=== PATIENT | male | born 1970 | race Caucasian/White ===

== ENCOUNTER 2019-10-29 06:33 | Inpatient (IN) | payer OTHER, SELFPAY ==
[2019-10-29] VITALS (28 sets, daily range): BP systolic 109–152; BP diastolic 18–128; PULSE 77–94; RESP 6–20; TEMP 36–37.8; O2SAT 87–99
[2019-10-29] MEDS: Lactated Ringers 1,000 ML 80 ML IV ×3 (07:05→15:44)
[2019-10-29] MEDS: Celecoxib 200 MG CAP 400 MG PO (07:09)
[2019-10-29] MEDS: Gabapentin 300 MG CAP PO (07:09)
--- NOTE | 2019-10-29 07:24 | W.PREOPHP ---
Date of service: 10/29/19 Time of Service: 07:25 Assessment and Plan Assessment and plan (1) Varus deformity, not elsewhere classified, right knee: Status: Acute (2) Arthritis of right knee: Status: Acute Assessment and plan: Jag is a 49-year-old with severe arthritis of the right knee with notable varus deformity. He has failed conservative options and continues to have pain on a daily basis. I have offered a knee replacement. I previously discussed this in the office. But once again reviewed the risk of the procedure. These are not limited to bleeding, infection, pain, stiffness, hardware loosening, hardware failure, damage nerves and vessels, need for repeat procedures, blood clot, fracture. Despite these risks, he elects to proceed. A complete history and physical was performed by Lynne Keating at the facility and is noted in the chart along with preoperative labs. All this information was reviewed this morning. History of Present Illness History of Present Illness Chief Complaint: Right Knee DJD Narrative: Jag is a 49-year-old incarcerated male who has known severe arthritis of the right knee with notable deformity. This is plagued his ability to be independent with ambulation because chronic pain requiring narcotic medications in the form methadone. He is treated this conservatively for many years but continues to have worsening symptoms. I previously saw him in the office where the knee was evaluated with significant varus deformity, stable, and with severe [id number] arthritis. I had a long talk with him about treatment options along with the staff at the correctional facility in [place]. Today, he continues to complain of pain of the right knee. He is anxious to proceed with the right knee surgery but is nervous about pain control afterwards. He denies any current cough, fever, chills. He has had a Covid test and has been quarantined since then with a negative result. He had labs and history physical performed in [place] which all did not identify any significant reasons to not proceed with surgery today. Review of Systems All systems reviewed & are unremarkable except as noted in HPI and below [facility] Medical History Antisocial personality disorder (Acute) Chronic pain (Chronic) GERD (gastroesophageal reflux disease) (Chronic) Hx of opioid abuse (Acute) Hypertension (Chronic) IBS (irritable bowel syndrome) (Chronic) Surgical History History of arthroscopy of left shoulder (Acute) Hx of elbow surgery (Acute) R elbow Hx of spinal fusion (Acute) Social History Smoking/Tobacco Use Status: Former Tobacco Use Drug use: Never Current gender identity: male Meds Home Medications and Allergies Home Medications Medication Instructions Recorded Confirmed Type acetaminophen 325 mg capsule 325 mg PO BID 03/31/19 10/29/19 History docusate sodium 100 mg capsule 100 mg PO BID 03/31/19 10/29/19 History doxepin 100 mg capsule 100 mg PO DAILY 03/31/19 10/29/19 History hydrochlorothiazide 25 mg tablet 25 mg PO DAILY 03/31/19 10/29/19 History indomethacin 50 mg capsule 50 mg PO BID 03/31/19 10/29/19 History ketorolac 60 mg/2 mL intramuscular 60 mg IM ONCE 03/31/19 10/29/19 History cartridge lisinopril 30 mg tablet 30 mg PO DAILY 03/31/19 10/29/19 History pantoprazole 20 mg tablet,delayed 40 mg PO DAILY 03/31/19 10/29/19 History release sennosides 8.6 mg capsule 8.6 mg PO BID PRN 03/31/19 10/29/19 History buprenorphine HCl 8 mg sublingual 16 mg SL DAILY tab 04/28/19 10/29/19 History tablet bupropion HCl 75 mg tablet 150 mg PO BID tab 04/28/19 10/29/19 History dicyclomine 20 mg tablet 60 mg PO BID PRN tab 04/28/19 10/29/19 History propranolol 40 mg tablet 40 mg PO BID 04/28/19 10/29/19 History selenium sulfide 2.5 % lotion 2.5 % TP DAILY 04/28/19 10/29/19 History calcium carbonate [Tums] 1,000 mg PO BID PRN 10/27/19 10/29/19 History dextroamphetamine-amphetamine 30 mg PO DAILY 10/27/19 10/29/19 History [Adderall XR] diclofenac sodium [Voltaren 4 g TOPICAL BID PRN 10/27/19 10/29/19 History Arthritis Pain] magnesium hydroxide [Milk of 15 ml PO TID PRN 10/27/19 10/29/19 History Magnesia] methadone 110 mg PO DAILY 10/27/19 10/29/19 History pregabalin 100 mg PO TID 10/27/19 10/29/19 History duloxetine 30 mg PO BID 10/28/19 10/29/19 History min oil-lydia ilya-pet,w-cetyl al 1 applic TOPICAL BID PRN 10/28/19 10/29/19 History [DermaDaily] psyllium husk [Metamucil] 1 tbsp PO DAILY PRN 10/28/19 10/29/19 History triamcinolone acetonide 1 applic TOPICAL DAILY 10/28/19 10/29/19 History Allergies Allergy/AdvReac Type Severity Reaction Status Date / Time No Known Allergies Allergy Verified 10/29/19 06:57 Exam Narrative Exam Narrative: Sitting up in the hospital stretcher. Right knee shows significant varus deformity. No overlying skin changes or signs of skin defects or infection. Sensation intact light touch over the deep and superficial peroneal nerve and tibial nerve. Active ankle dorsiflexion, plantarflexion, great toe extension and great toe flexion. Results Last Vital Signs Temp 36.0 C L 10/29/19 06:37 Pulse 80 10/29/19 06:37 Resp 19 10/29/19 06:37 BP 125/74 10/29/19 06:37 Pulse Ox 94 L 10/29/19 06:37
[2019-10-29] MEDS: Bupivacaine 0.25% Pres-Free 30 ML VIAL ×2 (07:36→08:51)
[2019-10-29] MEDS: ceFAZolin 2 GM/50 ML BAG IVPB (07:41)
--- NOTE | 2019-10-29 07:46 | NUR.NOTE ---
Addendum entered by Mansi Haynes 10/29/19 08:13: Circulating RN aware also Original Note: Nursing Note: Birthdate discrepancy noted on Covid results obtained for pt. Covid results had pt's date of 07/23/1969. Paperwork for today's procedure has pt's date of 1970. Patient confirms with nurse, date of is 1970. Order Selector of [facility] and Orthopedics office aware of discrepancy prior to procedure.
[2019-10-29] MEDS: Ketorolac 30 MG/ML VIAL (08:53)
[2019-10-29] MEDS: Normal Saline 20 ML VIAL (08:54)
[2019-10-29] MEDS: fentaNYL 100 MCG/2 ML VIAL IVP ×2 (11:40→11:50)
--- NOTE | 2019-10-29 12:31 | ROE_ITS ---
Date of service: 10/29/19 Time of Service: 10:53 Operative Note Operative Note DATE OF PROCEDURE: 10/29/19 PRE-OP DIAGNOSIS: Right knee arthritis with severe varus deformity POST-OP DIAGNOSIS: same PROCEDURE: Right total Knee Arthroplasty with Intraoperative Navigation SURGEON: Fermin Cooper SAFETY AND OCCUPATIONAL HEALTH MANAGER: Gregroy Yates ANESTHESIA: GETA and regional ESTIMATED BLOOD LOSS: 600 PATHOLOGY: none sent TOURNIQUET TIME: 38 COMPLICATIONS: Other (The case was complicated at the time of induction. Patient fairly limited bronchospasm prior to placement after not tolerating LMA. During this time did have a desaturation requiring manual ventilation. Through this process the peripheral IV was also noted to be infiltrated making access challeng) Patient was transported to: PACU Patient's condition: stable Implants: 1. Depuy Attune Posterior Stabilized Femoral Component, Size 6 2. Depuy Attune Fixed Platform Tibial Component, Size 5 3. Depuy Attune 6x12 Fixed, Stabilized Poly 4. Depuy Attune Patellar Component, Size 38 Indications: I have seen Ozzy in clinic for symptoms of knee arthritis with severe deformity, confirmed with radiographic findings. He has exhausted nonoperative methods and was having significant limitations in daily function and desired better function and less pain. I discussed the technical details of a knee replacement. I explained the risks of the procedure to include, but not limited to, bleeding, infection, pain, stiffness, fracture, damage to nerves and vessels, damage to muscles and tendons, loosening, need for repeat procedure, blood clot and cardiopulmonary demise. Despite these risks, Jag elected to proceed. Findings: There was significant signs of arthritis throughout the knee along with severe varus deformity of the proximal tibia and large osteophytes circumferentially around the knee. Procedure Description: Jag was greeted in the preoperative holding area where the correct side was identified and marked. The consent was reviewed with the patient and signed. The history and physical was updated. All questions were answered. Preoperative mediacations were administered: Acetaminophen 1000mg, Celebrex 400mg, Gabapentin 300mg. An adductor canal block was then administered by the anesthesia team in the OR. The patient was placed into the supine position on the operating room table. A general anesthetic was then administered. However, during the beginning of induction there was notable poor oxygenation. Mask ventilation was required and it was determined that access was lost. There appeared to be a bronchospasm which was then followed by some hypotension and bradycardia. This did respond to some atropine. Access was finally established and Jag was monitored for the next 15 to 20 minutes. All vital signs correct themselves. There were no way for changes on his chest leads. He was noted to be stable and without signs of cardiovascular demise. Therefore, after discussing the case among all the providers in the room, we decided to proceed. A nonsterile tourniquet was placed high onto the leg but only used for cementing. Posts were placed for positioning during the procedure. All bony prominences were well padded. Prophylactic antibiotics in the form of cefazolin were administered. 1g of Tranxemic Acid was given intravenously within 30 minutes of incision. The right leg was then prepped with Chloraprep and draped in a standard fashion with impervious stockinette and extremity drape with Iodine impregnated skin protection. A timeout to confirm correct identity, side and site, procedure, allergies, anesthesia, and medical concerns was performed. With the knee in some flexion, a midline incision was made overlying the knee. Full thickness skin flaps were raised once the extensor mechanism was encountered. These were raised medially and laterally. Any bleeding was controlled with electrocautery. Once the extensor mechanism was fully exposed, a medial parapatellar arthrotomy was performed in a flexed position. All bleeding from the arthrotomy and the geniculate arteries was coagulated. A medial subperiosteal peel was performed with electrocautery to the midcoronal plane. Due to the significant varus deformity the entire medial tibial plateau was exposed. The fat pad was removed while keeping the patellar tendon protected. The anterior distal femur synovium was removed for later visualization. The ACL and PCL were resected and the anterior horn of the lateral meniscus was transected. The knee was then flexed with the patella everted. Large osteophytes from the tibia were removed. Large osteophytes from the femur were removed. There were notable osteophytes around the tibia with significant deformity of the medial tibia. A single starting pin was then placed 1cm anterior to the PCL insertion and the notch in the direction of the femoral head. The OrthoAlign device was applied over the pin. It was oriented to be in line with the epicondylar axis and the trochlear groove. It was then pinned into place. The navigation computer was then turned on and calibrated. The distal femur cut was set at 0 degrees varus/valgus and 2.5 degrees flexion. The distal femur cutting guide then was positioned for a 9mm cut. The distal femur was cut with an oscillating saw while protecting the soft tissues. The tibia was then addressed. The OrthoAlign device was placed over the tibial tubercle and medial tibia and secured into position. Once again, OrthoAlign was calibrated and then set for a 0 degree varus/valgus cut and 5 degrees of posterior slope. With this locked into position, the cut thickness stylus was used to assess cut thickness. The medial side, most involved side, was set for a 1mm cut through the trough of the posterior, medial tibia. This was then held in position and pinned into place with 2 additional pins and a cross pin for stability. The medial and lateral collateral ligaments were protected and the cut was performed. With this completed, it was assessed and noted to be of appropriate dimensions. The guide and OrthoAlign was removed. A spacer block was inserted and the knee was brought into extension. The 10 mm spacer block provided full extension, without hyperextension and with stability of both the medial and lateral collateral ligaments was assessed. There was some asymmetry with the gap with some laxity of the lateral side and therefore additional medial release was taken around the proximal, medial tibia to the posterior medial tibia. This improved the gap and was noted to be stable with a 12 mm spacer. The pins from the femur and the tibia were then removed. The distal femur was then sized. The anterior stylus was placed onto the lateral ridge of the anterior femur. This indicated a size 6 femur. The external rotation of the guide was adjusted to 3 degrees to match the epicondylar axis, perpendicular to [place]?s line. The 4-in-1 cutting guide was the placed. The posterior medial femur cut was evaluated and appeared of good thickness. The spacer block was inserted underneath the cutting guide and stability was confirmed in 90 degrees of flexion. An padmaja wing was used to confirm appropriate position of the anterior cut to avoid notching. This cutting guide was ensured to be flush on the cut surface and then pinned into place with headed pins. While protecting the soft tissues, quad tendon, and collateral ligaments, the anterior and posterior cuts were performed with a saw. The central two pins were removed and the posterior and anterior chamfers were cut next. The notch-cutting guide was placed. This was pinned to lateralize the femoral component as much as possible while keeping it flush on the cut surface. This was then pinned into position. A reciprocating saw was used to make the notch cut. A rasp smoothed the cut surfaces. A trial posterior stabilized femoral component was then inserted, impacted down to the cut surfaces, and the lug holes were drilled. A provisional trial tibial component was placed and the knee was brought through range of motion. There was noted to be excellent extension and flexion. There was no significant instability. The patella was tracking without thumbs. The tibial cut surface was fully exposed. The medial and lateral menisci were removed. The tibia was then sized as a 5. The tibia had been previously marked during trialing to correspond to the center of the tibial component to help with rotation. The trial was aligned to this gregory, approximately rotated to the medial 1/3rd of the tibial tubercle. The trial was pinned into place. The tibia was prepared with a reamer and a keel punch. The knee was then brought into extension and the patella was measured as 28mm. Using the patellar clamp and cut guide, this was resected to a flat surface with at least 13mm of thickness remaining. The size 38 patella fit the best. This was oriented and then clamped into position. The lugs were drilled. The trial components were removed. The final components, except for the polyethylene were opened on the back table. The periosteal and capsular tissues, especially posteriorly, around the knee were then systematically injected with a periarticular cocktail consisting of 50cc 0.25% Marcaine, 30mg Ketorolac, 20cc of Exparal and 50cc of injectable saline. The tourniquet was then inflated to 275mmHg. The knee was thoroughly irrigated with a pulse lavage and dried. On the back table, with the implants opened, the cement was mixed. 2 batches of antibiotic laden cement were prepared with vacuum assistance. After the cement was ready a small amount was placed on to the back side of the tibial component at the keel. A small amount was placed onto the posterior flange of the femur. Cement was manual pressurized and impregnated into the cut surface of the tibia. The tibial component was then inserted into the cut surface and impacted into position. Excess cement was removed and the component was reimpacted. Again, excess cement was removed and our attention was then turned to the femur. The femoral cut surface was once again dried and cement was manually impacted into the cut surface. The femoral component was lined with the lug holes and impacted. Excess cement was removed. It was ensured to be down against the cut surface. The trial polyethylene was then inserted and the leg was brought out into full extension for the duration of the cement curing process, approximately 15min. Cement was lastly manually impacted into the cut surface of the patella and the patellar button was clamped into position and held. During this process attention was turned to the gutters of the knee and for all interfaces for any excess cement. After the cement had finally cured, approximately 15min, the clamp was removed from the patella and the knee was taken through range of motion. A size 12 mm polyethylene component provided the best range of motion and stability with less than 2mm gapping with medial and lateral stress and full extension without significant hyperextension. The patella was tracking with a no-thumbs technique. The trial poly was removed and once again the knee was checked for any loose, excess, or errant cement. The poly component was then inserted and impacted into position after cleaning and drying the tibial tray. The capsule was then reapproximated with a No. 1 Vicryl at multiple locations. The capsule was finally closed with a No. 2 Stratafix, barbed suture. The tourniquet was then released and the arthrotomy appeared watertight without significant bleeding. The second dosing of 1g TXA was started. Deep tissues were then reapproximated with 0 Vicryl and 2-0 Vicryl. The skin was closed with a running 3-0 Monocryl in a subcuticular fashion. This was reinforced with skin glue. A Mepilex silver dressing was applied along with a [id number] KATHARINA wrap. A CryoCuff was applied. Jag was transferred to the hospital bed without difficulty with very stable vital signs and no sign of lasting complication. Jag has a good prognosis. Physical therapy will start today and without restrictions, weight-bearing as tolerated. Aspirin 81mg BID will be used for DVT prophylaxis. We will continue to observe him throughout the day today and overnight to make sure there is no other unexpected complication.
[2019-10-29] MEDS: Ketorolac 15 MG/ML VIAL IVP ×2 (13:02→19:24)
[2019-10-29] MEDS: Pregabalin 100 MG CAP PO ×2 (13:18→19:19)
[2019-10-29] MEDS: HYDROmorphone 2 MG/ML VIAL 1 MG IVP ×2 (13:19→15:45)
[2019-10-29] MEDS: oxyCODONE 5 MG TAB 10 MG PO (13:30)
[2019-10-29] MEDS: ceFAZolin 1 GM/50 ML BAG IVPB ×2 (15:43→23:44)
--- NOTE | 2019-10-29 16:35 | PT.INIE ---
Date of service: 10/29/19 Time of Service: 16:45 PT Notes Visit Reasons: R KNEE TOTAL Physical Therapy Inpatient Initial Evaluation Date: 10/29/2019 Referring Doctor: Fermin Cooper MD PT Orders: PT CONSULT: Status post Ortho surgery Precautions: Fall. Standard. WBAT on right LE. Patient Profile/Admitting Diagnosis: Jag is a 49-year-old male with arthritis and varus deformity of the right knee and is status post right total knee arthroplasty on postoperative day 0. PMHX: Medical History Antisocial personality disorder (Acute) Chronic pain (Chronic) GERD (gastroesophageal reflux disease) (Chronic) Hx of opioid abuse (Acute) Hypertension (Chronic) IBS (irritable bowel syndrome) (Chronic) Surgical History History of arthroscopy of left shoulder (Acute) Hx of elbow surgery (Acute) R elbow Hx of spinal fusion (Acute) Social History/Home Situation: Incarcerated. Does not need to deal with any steps in the facility. Independent with ambulation at baseline, no AD. Equipment Owned/DME: None Subjective: Reports pain in R knee at 7/10 but agreeable to PT consult. DEnies dizziness, chest pain, headache throughout session. Objective: General Observation: Telemetry monitoring in place. On arm and leg shackles. Cryocuff in R knee. KATHARINA wraps to R knee. Mental Status: Alert and oriented x4 Pain: 7/10 in the right knee ROM: Right Upper Extremity: Shoulder Flexion WFL. Shoulder abduction WFL. Elbow flexion WFL. Wrist flexion WFL. Opening and closing of hand WFL. Left Upper Extremity: Shoulder Flexion WFL. Shoulder abduction WFL. Elbow flexion WFL. Wrist flexion WFL. Opening and closing of hand WFL. Right Lower Extremity: Hip flexion WFL. Hip abduction WFL. Knee flexion 10 to 95 degrees. Knee -10 degrees. Ankle dorsiflexion WFL. Ankle plantarflexion WFL. Left Lower Extremity: Hip flexion WFL. Hip abduction WFL. Knee flexion WFL. Ankle dorsiflexion WFL. Ankle plantarflexion WFL. Strength: Right Upper Extremity: Shoulder flexors 5/5. Shoulder abductors 5/5. Elbow flexors 5/5. Elbow extensors 5/5. Inspector Floor strong. Left Upper Extremity: Shoulder flexors 5/5. Shoulder abductors 5/5. Elbow flexors 5/5. Elbow extensors 5/5. Inspector Floor strong. Right Lower Extremity: Hip flexors 4/5. Hip abductors 4/5. Knee flexors 3-/5. Knee extensors 3-/5. Ankle dorsiflexors 4/5. Ankle plantarflexors 5/5. Left Lower Extremity:Hip flexors 5/5. Hip abductors 5/5. Knee flexors 5/5. Knee extensors 5/5. Ankle dorsiflexors 5/5. Ankle plantarflexors 5/5. Sensation: Intact as to pain and pressure on bilateral lower extremities. Bed Mobility/Transfers: Supine to sit minimal assist Sit to supine minimal assist Sit to stand minimal assist Stand to sit contact-guard assist Gait: Patient only tolerated 3 sidesteps and [address] using the front wheeled walker with WBAT on the right LE with only contact-guard assist. Balance: Static Sitting: Normal Dynamic Sitting: Normal Static Standing: Fair Dynamic Standing: Fair Special Tests: Mobility Limitations Standardized Measure [facility] AM-PAC 6 clicks Basic Mobility Inpatient Short Form: Raw Score: 11 CMS Score: 73% deficit Informed Consent/Education: Patient instructed in purpose of PT consult and plan of care. Assessment: Jag demonstrates significant functional mobility decline requiring assistance and the use of a front wheeled walker with all mobility ADL performance, pain with ambulation, impairment with balance, and range of motion/strength deficits due to postoperative status. Jag is a 49-year-old male with arthritis and varus deformity of the right knee and is status post right total knee arthroplasty on postoperative day 0. Patient presents with clinical signs and symptoms consistent with current/admitting diagnoses that have resulted to mobility limitations, gait instability, generalized weakness, and impairment of motor control as demonstrated by the following impairment level findings: 1. Decreased strength to right knee major muscle groups 2. Impaired sitting/standing balance 3. Impaired activity tolerance 4. Limitation of joint range of motion in right knee Impairments are contributing to the following functional limitations: 1. Dependent bed mobility skills 2. Increased dependence with transfers 3. Inability to safely ambulate without assistive device and physical assistance 4. Increase completion time for mobility ADL performance 5. Increased fall risk 6. Inability to negotiate steps alone safely Patient is assessed as a [id number] moderate 49 male complexity based on the following: History: -year-old with impairment level findings, functional limitations, and past medical history as indicated above Examination: Demonstrable impairment in strength, balance, and mobility level with underlying impairments and functional limitations as documented above Presentation:Evolving Decision Makin moderate complexity Goals: Goals X 3 days 1. Supine-Sit independent 2. Sit-Supine independent 3. Sit-Stand independent 4. Stand-Sit independent 5. Bed-Chair independent 6. Chair-Bed independent 7. Independent gait on level surface with use of least restrictive device for at least 300 feet without report of pain nor dyspnea 8. Independent with home exercise program 9. Good static and dynamic standing balance/tolerance Plan of Care/Treatment Plan: 1-2x/day, 7 days/week x 1 week. Plan of care has been reviewed with the [employer] providing the service under Physical Therapy direction. Initiate Physical Therapy intervention for strengthening, bed mobility, transfers, gait, stairs, balance training, use of assistive device. DISCHARGE RECOMMENDATIONS: Home when medically cleared by orthopedic surgeon. Outpatient PT services to facilitate return to independent ADL performance. TREATMENT CODE/TIME: [id number] x 24 minutes beginning at 16:35 PM. Thank you for the opportunity to participate in the care of this patient. Jacey Nails PT, DPT, CLT [facility] [place], [place]
[2019-10-29] MEDS: Normal Saline Flush 10 ML SYR IV ×2 (16:51→22:52)
[2019-10-29] MEDS: oxyCODONE 10 MG TAB 20 MG PO ×3 (16:51→23:57)
[2019-10-29] MEDS: DULoxetine 30 MG CAP PO (19:19)
[2019-10-29] MEDS: Docusate Sodium 100 MG CAP PO (19:23)
[2019-10-29] MEDS: Acetaminophen 500 MG TAB 1000 MG PO (19:23)
[2019-10-29] MEDS: buPROPion 75 MG TAB 150 MG PO (19:23)
[2019-10-29] MEDS: Propranolol 40 MG TAB PO (19:23)
[2019-10-29] MEDS: Aspirin E.C. 81 MG TABEC PO (19:24)
[2019-10-29] MEDS: HYDROmorphone 2 MG/ML VIAL IVP (22:50)
[2019-10-30 00:01] LABS: COVID-19 RT-PCR UVMMC Result Negative (Negative)
[2019-10-30 00:06] VITALS: BP 101/70; PULSE 78; PULSE 80; RESP 24; O2SAT 92
[2019-10-30] MEDS: HYDROmorphone 2 MG/ML VIAL IVP (02:08)
[2019-10-30] MEDS: Ketorolac 15 MG/ML VIAL IVP ×2 (02:08→08:20)
[2019-10-30] MEDS: oxyCODONE 10 MG TAB 20 MG PO ×2 (03:48→12:31)
[2019-10-30 05:55] VITALS: BP 124/69; PULSE 80
[2019-10-30] MEDS: Lactated Ringers 1,000 ML 80 ML IV (05:58)
--- NOTE | 2019-10-30 06:50 | W.PM.DS.N ---
Date of service: 10/30/19 Time of Service: 07:24 DS: Diagnosis Discharge Diagnosis (1) Varus deformity, not elsewhere classified, right knee: Status: Acute (2) Arthritis of right knee: Status: Acute Discharge Plan Disposition Patient Disposition: [facility] Condition: Stable Discharge Details Reason For Visit: R KNEE TOTAL Admit Date/Time: 10/29/19 06:33 Admit Provider: Fermin Cooper Attending Provider: Fermin Cooper Primary Care Provider: Lynne Keating Hospital Course Hospital Course: Patient was admitted to the medical/surgical floor following the procedure. Although the induction was complicated with a period of bronchospasm, hypotension, and bradycardia, the surgery was tolerated well without any notable medical, surgical, or anesthetic complications upon completion of the case and recovery. He was observed closely and showed no signs of continued cardiopulmonary compromise. Mobilization began postoperatively. He was voiding spontaneously. Vitals were stable. Physical therapy worked with the patient and was cleared for discharge home. No acute medical issues. Jag always reported high pain levels although he objectively appeared to be managed appropriately on a very high dose of oxycodone given his substantial chronic pain history. Home Meds and New Rx's Prescriptions: Continued bupropion HCl 75 mg tablet 150 mg PO BID RF: 0 dicyclomine 20 mg tablet 60 mg PO BID PRNRF: 0 selenium sulfide 2.5 % lotion 2.5 % TP DAILY RF: 0 propranolol 40 mg tablet 40 mg PO BID RF: 0 docusate sodium 100 mg capsule 100 mg PO BID RF: 0 doxepin 100 mg capsule 100 mg PO DAILY RF: 0 hydrochlorothiazide 25 mg tablet 25 mg PO DAILY RF: 0 lisinopril 30 mg tablet 30 mg PO DAILY RF: 0 pantoprazole 20 mg tablet,delayed release (DR/EC) 40 mg PO DAILY RF: 0 senna 8.6 mg capsule 8.6 mg PO BID PRNRF: 0 methadone 10 mg/5 mL Solution 110 mg PO DAILY RF: 0 pregabalin 100 mg Capsule 100 mg PO TID RF: 0 diclofenac sodium [Voltaren Arthritis Pain] 1 % Gel 4 g TOPICAL BID PRNRF: 0 calcium carbonate [Tums] 300 mg (750 mg) Tablet,Chewable 1,000 mg PO BID PRNRF: 0 magnesium hydroxide [Milk of Magnesia] 400 mg/5 mL Suspension 15 ml PO TID PRNRF: 0 dextroamphetamine-amphetamine [Adderall XR] 30 mg Capsule,Extended Release 24hr 30 mg PO DAILY RF: 0 DermaDaily Lotion 1 applic TOPICAL BID PRNRF: 0 Metamucil 3.4 gram/5.4 gram Powder 1 tbsp PO DAILY PRNRF: 0 duloxetine 30 mg Capsule, Delayed Rel Sprinkle 30 mg PO BID RF: 0 triamcinolone acetonide 0.1 % Cream 1 applic TOPICAL DAILY RF: 0 Discontinued acetaminophen 325 mg capsule 325 mg PO BID RF: 0 indomethacin 50 mg capsule 50 mg PO BID RF: 0 ketorolac 60 mg/2 mL cartridge 60 mg IM ONCE RF: 0 No Action oxycodone 30 mg tablet 30 mg PO Q3H PRN MDD 240mg PRN (Reason: pain) Qty: 40 RF: 0 acetaminophen 500 mg tablet 1,000 mg PO Q8H PRN (Reason: pain) Qty: 90 RF: 3 aspirin 81 mg tablet,delayed release (DR/EC) 81 mg PO BID Qty: 60 RF: 0 ibuprofen 600 mg tablet 600 mg PO TID PRN (Reason: pain) Qty: 90 RF: 3 Discharge Instructions Additional Instructions: Dr. Cooper?s Total Knee Discharge Instructions Activity: The most important activity is to walk. You should try to take short walks a few times a day. It is important that when resting you work on keeping the knee straight. Avoid putting a pillow behind the knee as this will encourage flexion, however, it is okay to do to this for short periods to allow pain relief. Work on range of motion exercises as provided by Physical Therapy and the preoperative booklet. Use ice over the knee frequently. Heat to the thigh muscles and the back of the leg can be helpful but avoid direct heat to the knee for the first 2 weeks. - Physical therapy may be utilized to obtain range of motion and strength, usually starting after the first 5 days. Dressing: Keep the surgical dressing (Mepilex) in place for at least one week. The dressing may get wet after 3 days but avoid soaking the dressing. If it gets wet, just lightly pat dry. Most patient prefer to cover with ClingWrap or Saran Wrap to keep the dressing dry. After the first week, the dressing may be removed and replaced with light gauze and tape or nothing, although if the dressing is intact, you may leave that on for 2 weeks. Medications: - You should take Tylenol (1000mg every 8 hours) and anti-inflammatory Ibuprofen (600mg every 8 hours) as your primary pain control medications - You will continue your baseline dose of Methadone. - You have been prescribed a stronger pain medication Oxycodone for breakthrough pain, take as needed as prescribed. This medication is a very high dose and will be titrated down over the next few weeks. Recommend to start titration down after 5 days, usually 20% reduction every 5-7 days, discontinuing completely after 3-6 weeks. - You will continue Pantoprozole 40mg daily to help reduce stomach acid and reflux. - You will be taking Aspirin 81mg twice a day for DVT prevention unless instructed otherwise. - If you have constipation you should take Colace or Miralax (both [id number]). It takes most people 3-4 days to have a bowel movement. Follow-up: 2-4 weeks. If you have any acute concerns or questions, please do not hesitate to contact the office at [phone]. You may contact Dr. Cooper with any questions after hours through the hospital at [phone] or on his cell phone at [phone]. Referrals: Fermin Cooper MD [ [facility] STAFF PHYSICIAN] - Activity:: Activity as Tolerated Equipment/Supplies:: Walker Diet:: As Tolerated Discharge Orders Discharge Orders: Discharge Order (Routine); Ordered 10/30/19 Ordered By: Fermin Cooper DS: Summary Status at Discharge Functional status at discharge: uses cane/walker Overall status at discharge: patient is progressing back to baseline Mental Status: mental status grossly normal Speech and Movement: speech and movement normal Mood: congruent mood Affect: normal affect Exam Narrative Exam Narrative: Vital signs stable. No acute distress. Breathing comfortably without audible wheezing or work. Able to straight leg raise with a lag. [place] wrap is removed. Notable hemarthrosis but no drainage onto the dressing. No significant swelling into the thigh or the calf. Palpable DP and PT pulses. Sensation intact light touch over the deep and superficial peroneal nerves and tibial nerve. Active ankle dorsiflexion, plantarflexion, EHL, FHL intact. Const General: cooperative, healthy appearing, comfortable and no acute distress Orientation: alert, awake and oriented x3 Psych Mental Status: mental status grossly normal Speech and Movement: speech and movement normal Mood: congruent mood Affect: normal affect DS: Data Vitals/I&O Vitals and I&O: Vital Signs Temperature 37.8 C H 10/29/19 19:24 Temperature Source Temporal Artery Scan 10/29/19 15:45 Pulse 80 10/30/19 05:55 Pulse Rhythm Regular 10/30/19 00:09 Pulse 80 10/30/19 00:06 Respiratory Rate 24 10/30/19 00:06 Respiratory Effort Non-Labored 10/30/19 00:09 Respiratory Depth Normal 10/30/19 00:09 Respiratory Pattern Normal 10/30/19 00:09 Blood Pressure 124/69 10/30/19 05:55 Blood Pressure Mean 81 10/30/19 05:55 Blood Pressure Position Supine 10/29/19 12:20 Pulse Oximetry 92 L 10/30/19 00:06 Respiratory End-tidal CO2 50 10/29/19 12:10 Oxygen Delivery Method Room Air 10/29/19 15:45 Oxygen Flow Rate 0 10/29/19 15:45 Pain Level 8 10/30/19 02:08 Intake & Output 10/29/19 10/29/19 10/30/19 11:59 23:59 11:59 Intake Total 1670 / 3317.334 1647.334 / 3317.334 1111.333 / 1111.333 Output Total 300 / 300 Balance 1670 / 3317.334 1647.334 / 3317.334 811.333 / 811.333 Weight 111.5 kg 111.5 kg Intake: IV 1670 / 2577.334 907.334 / 2577.334 611.333 / 611.333 Oral 740 / 740 500 / 500 Output: Urine 300 / 300 Other: Urine Color Yellow Yellow Urine Appearance Clear Clear Urine Odor Normal Comment Faint bloodiness noted on lip of urinal. Pt stated that he noticed some burning while voiding. Emesis Description None None Voiding Methods Urinal Data Completed and Pending Labs on day of discharge: Labs from last 24 hours 10/29/19 10:14 COVID-19 PCR Negative Nasopharyn COVID-19 PCR Not Applicable Ref Test Perform Site [facility] lab [facility] Medical History Antisocial personality disorder (Acute) Chronic pain (Chronic) GERD (gastroesophageal reflux disease) (Chronic) Hx of opioid abuse (Acute) Hypertension (Chronic) IBS (irritable bowel syndrome) (Chronic) Surgical History History of arthroscopy of left shoulder (Acute) Hx of elbow surgery (Acute) R elbow Hx of hand surgery (Acute) pt. reports procedure on palm cut from broken glass Hx of spinal fusion (Acute) Social History Smoking/Tobacco Use Status: Former Tobacco Use Drug use: Never Current gender identity: male
[2019-10-30 08:03] VITALS: BP 131/76; PULSE 80; O2SAT 94
[2019-10-30] MEDS: Pregabalin 100 MG CAP PO ×2 (08:13→12:31)
[2019-10-30] MEDS: buPROPion 75 MG TAB 150 MG PO (08:14)
[2019-10-30] MEDS: Lisinopril 10 MG TAB 30 MG PO (08:14)
[2019-10-30] MEDS: Propranolol 40 MG TAB PO (08:15)
[2019-10-30] MEDS: Docusate Sodium 100 MG CAP PO (08:15)
[2019-10-30] MEDS: Aspirin E.C. 81 MG TABEC PO (08:18)
[2019-10-30] MEDS: DULoxetine 30 MG CAP PO (08:18)
[2019-10-30] MEDS: oxyCODONE 10 MG TAB 30 MG PO ×2 (08:18→12:30)
[2019-10-30] MEDS: Acetaminophen 500 MG TAB 1000 MG PO (08:19)
[2019-10-30] MEDS: hydroCHLOROthiazide 25 MG TAB PO (08:19)
[2019-10-30] MEDS: Pantoprazole 40 MG TABCR PO (08:20)
[2019-10-30] MEDS: Normal Saline Flush 10 ML SYR IV (08:21)
[2019-10-30] MEDS: ceFAZolin 1 GM/50 ML BAG IVPB (08:21)
--- NOTE | 2019-10-30 09:50 | PT.INTREAT ---
Date of service: 10/30/19 Time of Service: 09:50 PT Notes Visit Reasons: R KNEE TOTAL Physical Therapy Inpatient Treatment Note Date: 10/30/2019 Precautions: Fall. Standard. WBAT on right LE. Subjective: Continues to be cooperative and pleasant. Reports 7/10 pain in R knee that subside with ambulation activity. Objective: General Observation: Telemetry monitoring in place. On arm and leg shackles. Cryocuff in R knee. KATHARINA wraps to R knee. Mental Status: Alert and oriented x4 Pain: 7/10 in the right knee Bed Mobility/Transfers: Supine to sit standby assist Sit to supine standby assist Sit to stand standby assist Stand to sit standby assist Gait: 250 feet +250 feet using a walker WBAT on the right LE requiring standby assist with 7/10 pain in right knee initially but subsided with continued weight bearing. Step through gait pattern. THERA EX: Initially in sitting tolerated LA cues x10, seated hip flexion x10, and bilateral ankle DF/PF x20. Bilateral heel raises x 10, partial knee bends x 10, high marches in place x10 with pain report of 6?7/10 that subsided with rest. Balance: Static Sitting: Normal Dynamic Sitting: Normal Static Standing: Fair Dynamic Standing: Fair Assessment: Jag was able to tolerate seated and standing level exercises and covered significantly longer distance today using a front wheel walker despite pain report. DISCHARGE RECOMMENDATIONS: Home when medically cleared by orthopedic surgeon. Outpatient PT services to facilitate return to independent ADL performance. TREATMENT CODE/TIME: 9753 0 x 20 minutes, 44199 x 15 minutes beginning at 9:50 AM. Thank you for the opportunity to participate in the care of this patient. Jacey Nails PT, DPT, CLT [facility] [place], [place]
--- NOTE | 2019-10-30 11:46 | PDOC.CMIN ---
- If Service Date Differs Date of service: 10/30/19 Time of Service: 11:46 Care Management Initial Assess REASON FOR HOSPITALIZATION:: Total knee arthroscopy PAST MEDICAL HISTORY/PAST SURGICAL HISTORY:: Medical History . Antisocial personality disorder (Acute). Chronic pain (Chronic). GERD (gastroesophageal reflux disease) (Chronic). Hx of opioid abuse (Acute). Hypertension (Chronic). IBS (irritable bowel syndrome) (Chronic). Surgical History . History of arthroscopy of left shoulder (Acute). Hx of elbow surgery (Acute). R elbow. Hx of spinal fusion (Acute) PREVIOUS FUNCTIONAL STATUS/SOCIAL/FAMILY SUPPORTS:: Jag is currently incarcerated and will be for the next 4 years. He has a sister and a daughter that he talks to regularly. Jag denied the need for additional services at this time. CURRENT FUNCTIONAL STATUS:: Jag was sitting up in bed when CM visited. He was polite and respectful and answered questions willingly. Jag is currently incarcerated and will need no additional services upon discharge. ADVANCE DIRECTIVES:: none on file Has patient been provided with info about the portal/API?: No Did the patient sign up for the portal?: No CODE STATUS:: Full Code INSURANCE COVERAGE / FINANCIAL ISSUES:: [facility] PRIMARY CARE PHYSICIAN:: Lynne Keating TRANSPORTATION:: Jag will be transported via longterm staff. PLAN:: Jag will return to longterm upon discharge. He will follow up with the providers at the facility.
[2019-10-30 12:41] VITALS: BP 126/57; PULSE 80; O2SAT 93
--- NOTE | 2019-10-30 14:25 | NUR.NOTE ---
I spoke with Dr. Cooper and Ericka (At [facility] [place]) and they both verified that the medications had been communicated and that the patient was ready for discharge on the paperwork end. Nursing Note:
--- NOTE | 2019-10-30 15:53 | CHAPLAIN ---
Jag was resting in bed and told me about his knee surgery. He is currently incarcerated and two guards were with him. He was pleasant and engaged in a short conversation. He was discharged later in the afternoon.
--- NOTE | 2019-11-04 12:46 | PT.INDS ---
Date of service: 11/04/19 PT Notes Visit Reasons: R KNEE TOTAL Inpatient Physical Therapy Discharge Summary Dates: 11/04/2019 Dates of Service: 10/29/2019 and 10/30/2019 Referring Doctor: Fermin Cooper MD PT Orders: PT CONSULT: Status post Ortho surgery Precautions: Fall. Standard. WBAT on right LE. Patient Profile/Admitting Diagnosis: Jag is a 49-year-old male with arthritis and varus deformity of the right knee and is status post right total knee arthroplasty on postoperative day 0. PMHX: Medical History Antisocial personality disorder (Acute) Chronic pain (Chronic) GERD (gastroesophageal reflux disease) (Chronic) Hx of opioid abuse (Acute) Hypertension (Chronic) IBS (irritable bowel syndrome) (Chronic) Surgical History History of arthroscopy of left shoulder (Acute) Hx of elbow surgery (Acute) R elbow Hx of spinal fusion (Acute) Social History/Home Situation: Incarcerated. Does not need to deal with any steps in the facility. Independent with ambulation at baseline, no AD. Equipment Owned/DME: None Subjective: Reports pain in R knee at 7/10 but agreeable to PT consult. DEnies dizziness, chest pain, headache throughout session. Objective: General Observation: Telemetry monitoring in place. On arm and leg shackles. Cryocuff in R knee. KATHARINA wraps to R knee. Mental Status: Alert and oriented x4 Pain: 5-6/10 in the right knee ROM: Right Upper Extremity: Shoulder Flexion WFL. Shoulder abduction WFL. Elbow flexion WFL. Wrist flexion WFL. Opening and closing of hand WFL. Left Upper Extremity: Shoulder Flexion WFL. Shoulder abduction WFL. Elbow flexion WFL. Wrist flexion WFL. Opening and closing of hand WFL. Right Lower Extremity: Hip flexion WFL. Hip abduction WFL. Knee flexion 10 to 95 degrees. Knee -10 degrees. Ankle dorsiflexion WFL. Ankle plantarflexion WFL. Left Lower Extremity: Hip flexion WFL. Hip abduction WFL. Knee flexion WFL. Ankle dorsiflexion WFL. Ankle plantarflexion WFL. Strength: Right Upper Extremity: Shoulder flexors 5/5. Shoulder abductors 5/5. Elbow flexors 5/5. Elbow extensors 5/5. [employer] Supply Supervisor strong. Left Upper Extremity: Shoulder flexors 5/5. Shoulder abductors 5/5. Elbow flexors 5/5. Elbow extensors 5/5. Central Supply Supervisor strong. Right Lower Extremity: Hip flexors 4/5. Hip abductors 4/5. Knee flexors 3-/5. Knee extensors 3-/5. Ankle dorsiflexors 4/5. Ankle plantarflexors 5/5. Left Lower Extremity:Hip flexors 5/5. Hip abductors 5/5. Knee flexors 5/5. Knee extensors 5/5. Ankle dorsiflexors 5/5. Ankle plantarflexors 5/5. Sensation: Intact as to pain and pressure on bilateral lower extremities. Bed Mobility/Transfers: Supine to sit standby assist Sit to supine standby assist Sit to stand standby assist Stand to sit standby assist Gait: Patient tolerated level surface ambulation of 250 feet x 2 using front wheeled walker with WBAT on the right LE requiring standby assist with increased doc seen despite complaints of 5?6/10 pain in the right knee. Step through gait pattern Balance: Static Sitting: Normal Dynamic Sitting: Normal Static Standing: Fair Dynamic Standing: Fair Assessment: Jag continues to demonstrate functional mobility decline requiring the use of a front wheeled walker with all mobility ADL performance, pain with ambulation, impairment with balance, and range of motion/strength deficits due to postoperative status. Jag is a 49-year-old male with arthritis and varus deformity of the right knee and is status post right total knee arthroplasty on postoperative day 1 on day of discharge. Patient continues to present with clinical signs and symptoms consistent with current/admitting diagnoses that have resulted to mobility limitations, gait instability, generalized weakness, and impairment of motor control as demonstrated by the following impairment level findings: 1. Decreased strength to right knee major muscle groups 2. Impaired sitting/standing balance 3. Impaired activity tolerance 4. Limitation of joint range of motion in right knee Impairments are continuing to contribute to the following functional limitations: 1. Dependent bed mobility skills 2. Increased dependence with transfers 3. Inability to safely ambulate without assistive device and physical assistance 4. Increase completion time for mobility ADL performance 5. Increased fall risk 6. Inability to negotiate steps alone safely Goals: Goals X 3 days 1. Supine-Sit independent NOT MET 2. Sit-Supine independent NOT MET 3. Sit-Stand independent NOT MET 4. Stand-Sit independent NOT MET 5. Bed-Chair independent NOT MET 6. Chair-Bed independent NOT MET 7. Independent gait on level surface with use of least restrictive device for at least 300 feet without report of pain nor dyspnea NOT MET 8. Independent with home exercise program NOT MET 9. Good static and dynamic standing balance/tolerance NOT MET DISCHARGE RECOMMENDATIONS: Home when medically cleared by orthopedic surgeon. Outpatient PT services to facilitate return to independent ADL performance. TREATMENT CODE/TIME: Session [id number] x 20 minutes, 9711 0 x 15 minutes beginning at 9:50 AM. 38717 x 60 minutes beginning at 12:46 PM. Thank you for the opportunity to participate in the care of this patient. Jacey Nails PT, DPT, CLT [facility] [place], [place]
== END 2019-10-30 13:15 | disposition home or self-care (01) | DRG 470 ==
LOC: PDS 06:34 → ICU 11:07
PROVIDERS: Admitting Provider Student in an Organized Health Care Education/Training Program; PCP Nurse Practitioner Family; Visit Provider Student in an Organized Health Care Education/Training Program
PROC: 0SRC0J9 Replacement of Right Knee Joint with Synthetic Substitute, Cemented, Open Approach (ICD-10-PCS; CPT 27447; principal; 2019-10-29 07:30)
DX: M21.161 Varus deformity, not elsewhere classified, right knee (principal); M17.11 Unilateral primary osteoarthritis, right knee; M25.561 Pain in right knee; Z96.651 Presence of right artificial knee joint; G89.18 Other acute postprocedural pain; T80.89XA Other complications following infusion, transfusion and therapeutic injection, initial encounter; J68.3 Other acute and subacute respiratory conditions due to chemicals, gases, fumes and vapors; R09.02 Hypoxemia; I95.89 Other hypotension; R00.1 Bradycardia, unspecified; K21.9 Gastro-esophageal reflux disease without esophagitis; I10 Essential (primary) hypertension; G89.29 Other chronic pain
CPT/HCPCS: 27447; 20985; 76942; 97110; 97162; 97530; NC; U0003; J0171; J0690; J1885; J2001; J2250; J2704; J3010

== ENCOUNTER 2019-11-13 10:48 | Outpatient (CLI) | payer OTHER, SELFPAY ==
--- NOTE | 2019-11-13 10:45 | DI.RAD_ITS ---
EXAM: XR STANDING ALIGNMENT CLINICAL HISTORY: 1st post op TECHNIQUE: COMPARISON: No exams were available for comparison FINDINGS: AP standing alignment views were obtained. There is a total knee joint replacement in position on th e right. IMPRESSION: Standing alignment views with TKR in position right RADIATION DOSE DELIVERED: Total DLP
--- NOTE | 2019-11-13 10:45 | DI.RAD_ITS ---
EXAM: XR KNEE RT 2V AP,LAT CLINICAL HISTORY: 1st post op TECHNIQUE: COMPARISON: CR,DX XR KNEE 3V BILAT-M2 from 03/12/2019 FINDINGS: Two views were obtained. There is a total knee joint replacement in position. The components appear well seated. No other significant bony abnormality seen. IMPRESSION: TKR in position. RADIATION DOSE DELIVERED: Total DLP
== END 2019-11-13 11:08 ==
PROVIDERS: PCP Nurse Practitioner Family; Referring Provider Nurse Practitioner Family; Visit Provider Student in an Organized Health Care Education/Training Program
DX: Z96.651 Presence of right artificial knee joint (principal)
CPT/HCPCS: 73560; 77073

== ENCOUNTER 2020-08-18 11:22 | Outpatient (CLI) | payer OTHER, SELFPAY ==
--- NOTE | 2020-08-18 11:00 | DI.RAD_ITS ---
Exam(s) XR SHOULDER LT COMPLETE 2+V EXAM: XR SHOULDER LT COMPLETE 2+V CLINICAL HISTORY: shoulder pain. TECHNIQUE: 2D digital imaging was performed. COMPARISON: No exams were available for comparison FINDINGS: Severe advanced degenerative narrowing of the glenohumeral joint as well as opposing osteophytes on t he inferior articular surfaces of both humeral head and osseous glenoid and degenerative subarticular cysts. These findings are similar to the opposite-right side. Subacromial space is not diminished. Mild degenerative changes in the AC joint. IMPRESSION: Severe osteoarthritic degenerative change left shoulder, similar to the opposite side. DATA REPOSITORY: RADIATION DOSE DELIVERED:
--- NOTE | 2020-08-18 11:00 | DI.RAD_ITS ---
Exam(s) XR SHOULDER RT COMPLETE 2+V EXAM: XR SHOULDER RT COMPLETE 2+V CLINICAL HISTORY: shoulder pain. TECHNIQUE: 2D digital imaging was performed. COMPARISON: CR XR SHOULDER LT COMPLETE 2+V from 08/18/2020 FINDINGS: There is severe advanced degenerative narrowing of the right glenohumeral joint. Also opposing osteo phytes on the inferior articular surfaces of the humeral head and osseous glenoid. There are no calc ifications in the subacromial space. Mild degenerative changes in the AC joint. IMPRESSION: Severe osteoarthritic degenerative changes in the right shoulder, similar to the opposite-left side. DATA REPOSITORY: RADIATION DOSE DELIVERED:
== END 2020-08-18 11:23 | disposition home or self-care (01) ==
LOC: DIORS 11:22
PROVIDERS: PCP Nurse Practitioner Family; Referring Provider Nurse Practitioner Family; Visit Provider Physician Assistant
DX: M25.511 Pain in right shoulder (principal); M19.011 Primary osteoarthritis, right shoulder; M25.512 Pain in left shoulder; M19.012 Primary osteoarthritis, left shoulder
CPT/HCPCS: 73030

== ENCOUNTER 2020-10-07 03:22 | Outpatient (CLI) | payer OTHER, SELFPAY ==
--- NOTE | 2020-10-07 06:30 | DI.CT_ITS ---
Exam(s) CT UPPER EXTREMITY LT WO EXAM: CT UPPER EXTREMITY LT WO CLINICAL HISTORY: Preop plANNING,PRIMARY OA LT SHOULDER, M19.012. TECHNIQUE: Imaging Protocol: Axial computed tomography images with coronal and sagittal reformatted images were created and reviewed. COMPARISON: CR XR SHOULDER LT COMPLETE 2+V from 08/18/2020 FINDINGS: The examination is limited due to patient motion artifact. Bones: No acute fracture or dislocation. Bony alignment is satisfactory. There are marked osteoart hritic changes in the glenohumeral joint with joint space narrowing, subchondral sclerosis and cysts and periarticular osteophytes. Dystrophic calcifications are seen in the soft tissues anterior to th e glenoid. There are mild hypertrophic and cystic changes at the acromioclavicular joint consistent with osteoarthritis. Subchondral cysts are also seen in the greater tuberosity. No lytic or sclerot ic lesions are identified. Soft Tissues: There calcification superior to the humeral head suggestive of calcific tendinitis. IMPRESSION: Marked osteoarthritis of the glenohumeral joint. RADIATION DOSE DELIVERED: 997.3mGy.cm Total DLP 997.3mGy.cm Total DLP DATA REPOSITORY: All CT scans at this facility are submitted to the National Radiology Data Registry (NRDR) Dose Index Registry (DIR) with the [employer] ([employer]). RADIATION OPTIMIZATION: All CT scans at this facility use at least one of these dose optimization te chniques: automated exposure control; mA and/or kV adjustment per patient size (includes targeted exa ms where dose is matched to clinical indication); or iterative reconstruction.
--- NOTE | 2020-10-07 06:30 | DI.MRI_ITS ---
Exam(s) MR UPPER JOINT LT WO EXAM: MR UPPER JOINT LT WO CLINICAL HISTORY: Assess rotator cuff integrity,PRIMARY OA LT SHOULDER, M19.012. TECHNIQUE: Multiplanar multisequence MRI was performed. COMPARISON: CR XR SHOULDER RT COMPLETE 2+V from 08/18/2020 FINDINGS: The examination is limited due to patient motion artifact. BONES: There is no fracture or contusion pattern. JOINTS: Degenerative changes are seen at the acromioclavicular joint. There are marked degenerative changes seen at the glenohumeral joint with loss of the articular cartilage, subchondral edema and a large osteophyte at the inferior aspect of the humeral head. There is a 0.7 cm round density in the posterior aspect of the joint space which may represent a loose body. Small joint effusion. TENDONS: Supraspinatus: Unremarkable. Infraspinatus: Unremarkable. Subscapularis: Unremarkable. Teres Minor: Unremarkable. Biceps and [place]: Unremarkable. MUSCLES: Unremarkable. GLENOID LABRUM: The glenoid labrum appears intact on this noncontrast examination. SOFT TISSUES: Unremarkable. LIGAMENTS: Unremarkable. OTHER: Subacromial and subdeltoid bursae are unremarkable. IMPRESSION: 1. Examination limited by patient motion artifact. 2. Marked osteoarthritis of the glenohumeral joint. Mild osteoarthritis of the acromioclavicular gareth nt. 3. No evidence of a rotator cuff tear or muscular fatty atrophy. 4. Question of a 0.7 cm loose body in the joint space. 5. Small joint effusion. DATA REPOSITORY:
== END 2020-10-07 03:42 ==
PROVIDERS: PCP Nurse Practitioner Family; Visit Provider Physical Therapist
DX: M19.012 Primary osteoarthritis, left shoulder (principal); M25.412 Effusion, left shoulder
CPT/HCPCS: 73200; 73221

== ENCOUNTER 2021-09-06 10:22 | Outpatient (CLI) | payer OTHER, SELFPAY ==
--- NOTE | 2021-09-06 09:30 | DI.RAD_ITS ---
Exam(s) XR SHOULDER LT COMPLETE 2+V EXAM: XR SHOULDER LT COMPLETE 2+V CLINICAL HISTORY: left shoulder pain. TECHNIQUE: 2D digital imaging was performed of the left shoulder. Two images were obtained. AP and axillary views were obtained. COMPARISON: CR XR SHOULDER LT COMPLETE 2+V from 08/18/[address] UPPER EXTREMITY LT WO from 10/07/2020 FINDINGS: BONES: No acute fracture is present. No bony destructive lesion is seen. JOINTS: No dislocation present. There is marked osteoarthritis of the glenohumeral joint with loss of the joint space, subchondral cysts and sclerosis, and periarticular spurring present. The acromiocl avicular joint is well maintained. SOFT TISSUE: Normal. IMPRESSION: Marked osteoarthritis of the glenohumeral joint. DATA REPOSITORY: RADIATION DOSE DELIVERED:
== END 2021-09-06 10:23 | disposition home or self-care (01) ==
LOC: DIORS 10:22
PROVIDERS: PCP Nurse Practitioner Family; Referring Provider Nurse Practitioner Family; Visit Provider Student in an Organized Health Care Education/Training Program
DX: M19.012 Primary osteoarthritis, left shoulder (principal)
CPT/HCPCS: 73030